=== PATIENT | male | born 1985 | race Caucasian/White ===

== ENCOUNTER 2023-06-13 10:47 | Outpatient (CLI) | payer OTHER, SELFPAY ==
[2023-06-13 11:06] VITALS: PULSE 95; RESP 18; O2SAT 98
[2023-06-13] MEDS: albuterol 2.5 mg/3 mL Neb INHALATION (11:06)
== END 2023-06-13 10:48 | disposition home or self-care (01) ==
LOC: RT 10:52
PROVIDERS: Visit Provider Nurse Practitioner Family
DX: J98.11 Atelectasis (principal); R05.3 Chronic cough; R06.02 Shortness of breath
CPT/HCPCS: 94060; J7613